=== PATIENT | male | born 1975 | race Caucasian/White ===

== ENCOUNTER 2017-03-04 17:05 | Emergency (ER) | payer OTHER ==
[~2017-03-04] VITALS: Ht 180.3 cm; Wt 98.4 kg
[2017-03-04] MEDS ORDERED: KEFLEX500 M1 PO (17:36)
[2017-03-04 17:40] VITALS: BP 136/79
== END 2017-03-04 17:40 | disposition home or self-care (01) ==
LOC: M.ERS 17:05
DX: S61.211A Laceration without foreign body of left index finger without damage to nail, initial encounter (principal); W26.0XXA Contact with knife, initial encounter; Y93.89 Activity, other specified; Y92.89 Other specified places as the place of occurrence of the external cause; Y99.8 Other external cause status